=== PATIENT | female | born 2000 | race Two or more races ===

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

== ENCOUNTER 2022-06-29 22:48 | Emergency (ER) | payer MEDICAID, OTHER | END 2022-06-30 00:53 | disposition home or self-care (01) | LOC: MW.ED 22:48 | DX: O20.0 Threatened abortion (principal); Z3A.00 Weeks of gestation of pregnancy not specified | CPT/HCPCS: 36415; 84702; 99283; 99284 ==

== ENCOUNTER 2023-05-27 08:52 | Inpatient (IN) | payer BC ==
[2023-05-27] MEDS ORDERED: Nalbuphine 10 MG/0.5 ML Syringe IVPUSH PRN (09:21)
[2023-05-27] MEDS ORDERED: Misoprostol 200 MCG Tab PO PRN (09:21)
[2023-05-27] MEDS ORDERED: Lidocaine 1% 50 ML MDV INJECT PRN (09:21)
[2023-05-27] MEDS ORDERED: Water For Irrigation,Sterile 1,000 ML Container IRR PRN (09:21)
[2023-05-27] MEDS ORDERED: Carboprost Tromethamine 250 MCG/1 mL Vial IM PRN (09:21)
[2023-05-27] MEDS ORDERED: Sodium Chloride 0.9% 10 ML Syringe FLUSH PRN (09:21)
[2023-05-27] MEDS ORDERED: Sodium Chloride 0.9% 20 ML SDV IV PRN (09:21)
[2023-05-27] MEDS ORDERED: Sodium Chloride 0.9% 2.5 ML Syringe FLUSH PRN (09:21)
[2023-05-27] MEDS ORDERED: Oxytocin/0.9 % Sodium Chloride 30 UNIT/500 ML BAG IV SCH (09:30)
[2023-05-27] MEDS: Lactated Ringers 1,000 ML IV ONE (09:46)
[2023-05-27 09:59] LABS: HEMATOCRIT 36.3 % (37.0-47.0); HEMOGLOBIN 12.7 g/dL (12.0-16.0); MEAN CORPUSCULAR HEMOGLOBIN 29.2 pg (28.0-32.0); MEAN CORPUSCULAR VOLUME 83.4 fL (83.0-99.0); MEAN PLATELET VOLUME 10.6 fL (9.4-12.3); PLATELET COUNT,PLT 293 K/uL (150-400); RED BLOOD CELL COUNT 4.35 M/uL (4.10-5.30); WHITE BLOOD CELL COUNT,WBC 21.19 K/uL (3.9-11.3)
[2023-05-27] MEDS: Lactated Ringers 1,000 ML IV SCH (10:50)
[2023-05-27] MEDS: Ondansetron 4 MG/2 ML SDV IVPUSH PRN (17:54)
[2023-05-27] MEDS: Oxytocin/0.9 % Sodium Chloride 30 UNIT/500 ML BAG IV SCH (20:48)
[2023-05-28] MEDS: Oxytocin 10 Units/1 ML SDV ONE (00:15)
[2023-05-28] MEDS: Tranexamic Acid IN NACL,ISO-OS 1,000 MG in Premix Bag 1 BAG IV PRN (00:26)
[2023-05-28] MEDS: Methylergonovine 0.2 MG/1 ML Amp IM PRN (00:30)
[2023-05-28 00:45] LABS: HEMOGLOBIN 10.6 g/dL (12.0-16.0); MEAN CORPUSCULAR HEMOGLOBIN 29.3 pg (28.0-32.0); MEAN CORPUSCULAR HGB CONC 34.2 g/dL (32.0-36.0); MEAN CORPUSCULAR VOLUME 85.6 fL (83.0-99.0); MEAN PLATELET VOLUME 10.6 fL (9.4-12.3); PLATELET COUNT,PLT 322 K/uL (150-400); RED BLOOD CELL COUNT 3.62 M/uL (4.10-5.30)
[2023-05-28] MEDS ORDERED: Lanolin 100% Cream 7 GM Tube TOP PRN (00:56)
[2023-05-28] MEDS ORDERED: oxyCODONE 5 MG Tab PO PRN (00:56)
[2023-05-28] MEDS ORDERED: Lactated Ringers 1,000 ML IV SCH (01:00)
[2023-05-28 01:02] LABS: SEG NEUTROPHILS ABSOLUTE MAN 19.17 K/uL (1.80-7.70); SEG NEUTROPHILS PERCENT MAN 90 % (41-71)
[2023-05-28 01:03] LABS: INR 1.03 (0.86-1.11)
[2023-05-28 01:04] LABS: PH,UMBILICAL ARTERIAL 7.026 (7.18-7.38); PH,UMBILICAL VENOUS 7.248 (7.25-7.45)
[2023-05-28 01:04] LABS: LYMPHOCYTES ABSOLUTE MAN 1.49 K/uL (1.00-4.80); LYMPHOCYTES PERCENT MAN 7 % (24-44); MONOCYTES ABSOLUTE MAN 0.64 K/uL (0.00-0.80); MONOCYTES PERCENT MAN 3 % (0-8)
[2023-05-28] MEDS: Ibuprofen 800 MG Tab PO PRN (03:11)
[2023-05-28] MEDS: Acetaminophen 500 MG Tab PO PRN (03:13)
[2023-05-28] MEDS: Benzocaine/Menthol 20%-0.5% Spray 78 GM Cannister TOP PRN (03:31)
[2023-05-28] MEDS: Witch Hazel Medicated Pads 40/Jar TOP PRN (03:31)
[2023-05-28] MEDS: Docusate Sodium 100 MG Cap PO PRN (03:32)
[2023-05-28 06:37] LABS: HEMATOCRIT 22.7 % (37.0-47.0)
[2023-05-28] MEDS: Sodium Ferric Gluconate Cmplex 125 MG in Sodium Chloride 0.9% 100 ML IV SCH (11:01)
[2023-05-29 06:36] LABS: HEMATOCRIT 19.4 % (37.0-47.0); HEMOGLOBIN 6.5 g/dL (12.0-16.0); MEAN CORPUSCULAR HEMOGLOBIN 28.6 pg (28.0-32.0); MEAN CORPUSCULAR HGB CONC 33.5 g/dL (32.0-36.0); MEAN CORPUSCULAR VOLUME 85.5 fL (83.0-99.0); MEAN PLATELET VOLUME 10.5 fL (9.4-12.3); PLATELET COUNT,PLT 251 K/uL (150-400); RED BLOOD CELL COUNT 2.27 M/uL (4.10-5.30); WHITE BLOOD CELL COUNT,WBC 17.93 K/uL (3.9-11.3)
[2023-05-29 18:21] LABS: HEMOGLOBIN 10.8 g/dL (12.0-16.0); MEAN CORPUSCULAR HEMOGLOBIN 29.5 pg (28.0-32.0); MEAN CORPUSCULAR HGB CONC 34.8 g/dL (32.0-36.0); MEAN CORPUSCULAR VOLUME 84.7 fL (83.0-99.0); MEAN PLATELET VOLUME 10.3 fL (9.4-12.3); NRBC ABSOLUTE 0.03 K/uL (0.00-0.02); NRBC PERCENT 0.2 /100WBC (0.0-0.2); PLATELET COUNT,PLT 285 K/uL (150-400); RED BLOOD CELL COUNT 3.66 M/uL (4.10-5.30)
== END 2023-05-29 20:08 | disposition home or self-care (01) | DRG 560 ==
LOC: MW.OBCHECK 08:52 → MW.OB 08:53 → MW.OBCHECK 09:21 → OBSVTOIN 23:44 → MW.OB 05-28 04:32
PROVIDERS: ADMIT Obstetrics & Gynecology; ATTEND Obstetrics & Gynecology
PROC: 10E0XZZ Delivery of Products of Conception, External Approach (ICD-10-PCS; principal; 2023-05-29)
PROC: 10907ZC Drainage of Amniotic Fluid, Therapeutic from Products of Conception, Via Natural or Artificial Opening (ICD-10-PCS; 2023-05-29)
PROC: 30233N1 Transfusion of Nonautologous Red Blood Cells into Peripheral Vein, Percutaneous Approach (ICD-10-PCS; 2023-05-29)
DX: O48.0 Post-term pregnancy (principal); O99.02 Anemia complicating childbirth; D64.9 Anemia, unspecified; O62.2 Other uterine inertia; Z37.0 Single live birth; Z3A.40 40 weeks gestation of pregnancy; O77.0 Labor and delivery complicated by meconium in amniotic fluid
CPT/HCPCS: 36415; 36430; 59025; 59409; 82803; 85007; 85014; 85018; 85027; 85384; 85610; 86592; 86850; 86900; 86901; 86920; A9270-GY; J2210; J2405; J2590; J2916; J3490; J7120; P9016